=== PATIENT | female | born 1995 | race African-American/Black ===

== ENCOUNTER 2017-04-27 02:05 | Observation (INO) | payer OTHER ==
[~2017-04-27] VITALS: Ht 157.5 cm; Wt 73.1 kg
[2017-04-27] VITALS (9 sets, daily range): BP systolic 85–102; BP diastolic 46–68
[2017-04-27] MEDS ORDERED: ONDANSETRON PF 4 MG/2 ML VIAL. IV PRN ×3 (03:45→09:15)
[2017-04-27] MEDS ORDERED: IV RINGERS,LACTATED 1000ML 1,000 ML IV SCH ×2 (03:45→08:18)
[2017-04-27] MEDS ORDERED: HYDROmorphone 2 MG/ML VIAL IV PRN ×2 (03:45→08:30)
[2017-04-27] MEDS ORDERED: AMMONIA AROMATIC 15% INHALANT AMPUL. ONE (04:17)
[2017-04-27 08:07] LABS: HEMATOCRIT 20.8 % (36.0-47.0); HEMOGLOBIN 6.7 g/dL (12.0-15.5)
[2017-04-27] MEDS ORDERED: VASOPRESSIN 20 UNIT/ML VIAL. ONE (08:16)
[2017-04-27] MEDS ORDERED: OXYTOCIN 10 UNIT/ML VIAL. ONE ×2 (08:17→09:00)
[2017-04-27] MEDS ORDERED: fentaNYL PF VIAL 100 MCG/2 ML VIAL ONE (08:27)
[2017-04-27] MEDS ORDERED: LIDOCAINE 2% PF Vial for OR 5 ML VIAL. ONE (08:27)
[2017-04-27] MEDS ORDERED: PROPOFOL 20 ML IV ONE (08:27)
[2017-04-27] MEDS ORDERED: MIDAZOLAM HCL/PF 2 MG/2 ML VIAL. ONE (08:27)
[2017-04-27] MEDS ORDERED: LIDOCAINE 1% 1 ML SYRINGE. ID PRN (08:30)
[2017-04-27] MEDS ORDERED: MORPHINE SULFATE 2 MG/ML DISP.SYRIN. IV PRN (08:30)
[2017-04-27] MEDS ORDERED: fentaNYL PF VIAL 100 MCG/2 ML VIAL IV PRN ×2 (08:30)
[2017-04-27] MEDS ORDERED: PROCHLORPERAZINE 10 MG/2 ML VIAL. IV PRN ×2 (08:30→09:15)
[2017-04-27] MEDS ORDERED: PHENYLEPHRINE in 0.9% NACL PF 1 MG/10 ML DISP.SYRIN. IV ONE (08:51)
--- NOTE | 2017-04-27 09:11 | PDOC ---
BRIEF OPERATIVE NOTE Pre-Op Diagnosis 12 wk Incomplete Post-Op Diagnosis SAme Procedure Performed Suction D&C Surgeon Dr. Alston Anesthesia Type: General Blood Loss 500 ml Specimens Obtained POC and blood clot Findings active bleeding from cervix with POC at cervical os Complications none UCHE ALSTON Jr, MD Apr 27, 2017 09:11
[2017-04-27] MEDS ORDERED: SIMETHICONE 80 MG TAB.CHEW PO PRN (09:15)
[2017-04-27] MEDS ORDERED: 0.9 % SODIUM CHLORIDE 10 ML DISP.SYRIN. IV PRN (09:15)
[2017-04-27] MEDS ORDERED: ZOLPIDEM 5 MG TABLET. PO PRN (09:15)
[2017-04-27] MEDS ORDERED: diphenhydrAMINE 50 MG/ML VIAL IV PRN (09:15)
[2017-04-27] MEDS ORDERED: DEXTROSE 50% 25 GM / 50ML DISP.SYRIN. IV PRN (09:15)
[2017-04-27] MEDS ORDERED: CALCIUM CARBONATE 500 MG TAB.CHEW PO PRN (09:15)
[2017-04-27] MEDS ORDERED: KETOROLAC 30 MG/ML INJ. IV PRN (09:15)
[2017-04-27] MEDS ORDERED: oxyCODONE/APAP 5/325 1 TAB TABLET PO PRN (09:15)
[2017-04-27] MEDS ORDERED: diphenhydrAMINE HCL 25 MG CAPSULE PO PRN (09:15)
[2017-04-27 09:23] LABS: RED BLOOD COUNT 2.23 x10^6/uL (3.50-5.40); WHITE BLOOD COUNT 14.9 x10^3/uL (4.0-11.0)
[2017-04-27 09:24] LABS: HEMATOCRIT 19.9 % (36.0-47.0); HEMOGLOBIN 6.3 g/dL (12.0-15.5)
--- NOTE | 2017-04-27 09:51 | OP ---
DATE OF SURGERY: PREOPERATIVE DIAGNOSIS: Twelve-week incomplete . POSTOPERATIVE DIAGNOSIS: Twelve-week incomplete . PROCEDURE: Suction D and C. SURGEON: Uche Alston MD ANESTHESIA: LMA. ESTIMATED BLOOD LOSS: 500 mL including large blood clots at the beginning of the procedure. FINDINGS: Active bleeding from cervical os with products of conception at the cervical os. COMPLICATIONS: None. SUMMARY: A 22-year-old 2, para 1 at 12 weeks' gestation with an incomplete . She was transferred from [facility] Emergency Department. The patient was evaluated and found to be passing large blood clots along with active bleeding. She required emergency suction D and C. She was counseled on risks, benefits and expectations and voiced a clear understanding to proceed. DESCRIPTION OF PROCEDURE: The patient was taken to surgery suite and placed in dorsal lithotomy position. She was prepped with Betadine and draped in sterile fashion. After adequate anesthesia, a weighted speculum and curved Jacek placed. Anterior lip of the cervix grasped with single-tooth tenaculum. At the level of the cervical os, there was some moderate amount of placental tissue and products of conception were removed with ring forceps. Ring forceps exploration was continued, removing additional products of conception and placental fragments. Suction curette of a 12 cm curved tip was utilized at 65 cm of Hg for pressure. This was rotated in a circumferential manner, removing additional products of conception and blood clots. Sharp curettage took place until a fine gritty surface was palpated circumferentially. Suction curette was passed once again, removing additional blood products. Single-tooth tenaculum and weighted speculum were removed. The patient tolerated the procedure well and was taken to recovery room in stable condition. The patient, due to her severe anemia, was receiving 2 units of packed red blood cells that was initiated during procedure. Sponge count correct x 3. UCHE ALSTON MD DR: COLT/sven JOB#: [id number] / [id number]
[2017-04-27] MEDS ORDERED: GABAPENTIN 300 MG CAPSULE. PO SCH (10:00)
[2017-04-27 15:14] LABS: HEMATOCRIT 27.8 % (36.0-47.0); HEMOGLOBIN 9.1 g/dL (12.0-15.5)
[2017-04-28 06:00] VITALS: BP 92/58
[2017-04-28 07:49] LABS: BASO % 0 % (0-3); EOS % 1 % (0-3); HEMATOCRIT 23.1 % (36.0-47.0); HEMOGLOBIN 7.7 g/dL (12.0-15.5); LYMPH # 2.5 x10^3/uL (1.0-4.8); LYMPH % 25 % (24-48); MEAN CORPUSCULAR HEMOGLOBIN 29 pg (25-35); MEAN CORPUSCULAR HGB CONC 33 g/dL (31-37); MEAN CORPUSCULAR VOLUME 87 fL (79-100); MONO % 7 % (0-9); NEUT % 67 % (31-73); PLATELET COUNT 122 x10^3/uL (140-400); RED BLOOD COUNT 2.66 x10^6/uL (3.50-5.40); RED CELL DISTRIBUTION WIDTH 13.5 % (11.5-14.5); WHITE BLOOD COUNT 10.1 x10^3/uL (4.0-11.0)
--- NOTE | 2017-04-28 09:53 | PDOC ---
SURGICAL PROGRESS NOTE Subjective Pt. feeling well. She is ambulating, voiding and tolerating regular diet. Vital Signs Vital Signs Date Time Temp Pulse Resp B/P (MAP) Pulse Ox O2 Delivery O2 Flow Rate FiO2 04/28/17 06:00 98.1 79 16 92/58 (69) 98.1 04/27/17 13:09 98 Room Air 04/27/17 09:27 10 PATIENT HAS A RESTREPO: No General: Alert, Oriented X3, Cooperative HEENT: Atraumatic Lungs: Clear to auscultation Heart: Regular rate Abdomen: Normal bowel sounds, Soft, No tenderness, No masses Psych/Mental Status: Mental status NL Labs Laboratory Tests Test 04/27/17 07:51 04/27/17 09:05 04/27/17 14:55 04/28/17 07:12 Hemoglobin 6.7 g/dL (12.0-15.5) 6.3 g/dL (12.0-15.5) 9.1 g/dL (12.0-15.5) 7.7 g/dL (12.0-15.5) Hematocrit 20.8 % (36.0-47.0) 19.9 % (36.0-47.0) 27.8 % (36.0-47.0) 23.1 % (36.0-47.0) White Blood Count 14.9 x10^3/uL (4.0-11.0) 10.1 x10^3/uL (4.0-11.0) Red Blood Count 2.23 x10^6/uL (3.50-5.40) 2.66 x10^6/uL (3.50-5.40) Mean Corpuscular Volume 89 fL (79-100) 87 fL (79-100) Mean Corpuscular Hemoglobin 28 pg (25-35) 29 pg (25-35) Mean Corpuscular Hemoglobin Concent 32 g/dL (31-37) 33 g/dL (31-37) Red Cell Distribution Width 13.0 % (11.5-14.5) 13.5 % (11.5-14.5) Platelet Count 150 x10^3/uL (140-400) 122 x10^3/uL (140-400) Neutrophils (%) (Auto) 67 % (31-73) Lymphocytes (%) (Auto) 25 % (24-48) Monocytes (%) (Auto) 7 % (0-9) Eosinophils (%) (Auto) 1 % (0-3) Basophils (%) (Auto) 0 % (0-3) Neutrophils # (Auto) 6.7 x10^3uL (1.8-7.7) Lymphocytes # (Auto) 2.5 x10^3/uL (1.0-4.8) Monocytes # (Auto) 0.7 x10^3/uL (0.0-1.1) Eosinophils # (Auto) 0.1 x10^3/uL (0.0-0.7) Basophils # (Auto) 0.0 x10^3/uL (0.0-0.2) Laboratory Tests Test 04/27/17 14:55 04/28/17 07:12 Hemoglobin 9.1 g/dL (12.0-15.5) 7.7 g/dL (12.0-15.5) Hematocrit 27.8 % (36.0-47.0) 23.1 % (36.0-47.0) White Blood Count 10.1 x10^3/uL (4.0-11.0) Red Blood Count 2.66 x10^6/uL (3.50-5.40) Mean Corpuscular Volume 87 fL (79-100) Mean Corpuscular Hemoglobin 29 pg (25-35) Mean Corpuscular Hemoglobin Concent 33 g/dL (31-37) Red Cell Distribution Width 13.5 % (11.5-14.5) Platelet Count 122 x10^3/uL (140-400) Neutrophils (%) (Auto) 67 % (31-73) Lymphocytes (%) (Auto) 25 % (24-48) Monocytes (%) (Auto) 7 % (0-9) Eosinophils (%) (Auto) 1 % (0-3) Basophils (%) (Auto) 0 % (0-3) Neutrophils # (Auto) 6.7 x10^3uL (1.8-7.7) Lymphocytes # (Auto) 2.5 x10^3/uL (1.0-4.8) Monocytes # (Auto) 0.7 x10^3/uL (0.0-1.1) Eosinophils # (Auto) 0.1 x10^3/uL (0.0-0.7) Basophils # (Auto) 0.0 x10^3/uL (0.0-0.2) Assessment/Plan POD#1 s/p Suction D&C Chronic blood loss anemia: received 2 Units PRBC's P: D/c home. Problems: UCHE PATEL Jr, MD Apr 28, 2017 09:53
--- NOTE | 2017-04-28 09:54 | DISCH ---
DISCHARGE INSTRUCTIONS Condition on Discharge Condition on Discharge: Stable Activity After Discharge Activity Instructions for Disc: Activity as tolerated Lifting Instructions after Dis: No heavy lifting Driving Instructions after Dis: Do not drive today Diet after Discharge Diet after Discharge: Regular Contacting the [facility] after DC Call your doctor for: Concerns you may have Follow-Up Follow up with: Dr. Alston in 1 week UCHE ALSTON Jr, MD Apr 28, 2017 09:54
[2017-04-28] MEDS ORDERED: OXYC-323 PO (09:56)
[2017-04-28] MEDS ORDERED: FERR-26 PO (09:56)
[2017-04-28] MEDS ORDERED: DOCU-109 PO (09:56)
[2017-04-28 11:30] VITALS: BP 99/58
== END 2017-04-28 12:32 | disposition home or self-care (01) ==
LOC: INTOOBSV 03:22 → 3 NORTH 03:22
PROVIDERS: ADMIT Obstetrics & Gynecology; ATTEND Obstetrics & Gynecology
DX: O03.4 Incomplete spontaneous abortion without complication (principal); D50.0 Iron deficiency anemia secondary to blood loss (chronic); Z3A.12 12 weeks gestation of pregnancy
CPT/HCPCS: 36415; 36430; 59812; 85014; 85018; 85025; 85027; 86850; 86900; 86901; 86920; 88305; 96374; C1892; G0378; G0379; J0690; J1170; J2250; J2370; J2590; J2704; J3010; P9016; J3490; J7120; J2001